=== PATIENT | male | born 1960 | race Hispanic/Latino ===

== ENCOUNTER 2016-10-20 16:48 | Emergency (ER) | payer MEDICARE ==
[2016-10-21 01:01] LABS: Urine Drugs of Abuse Note Disclamer
[2016-10-21 01:04] LABS: Basophils % (Auto) 0.9 % (0.0-1.8); Eosinophils % (Auto) 2.4 % (0.0-4.3); Hematocrit 45.2 % (35.5-45.6); Hemoglobin 14.8 gm/dl (11.8-15.2); Mean Corpuscular HGB Conc 33 % (32-34); Mean Corpuscular Hemoglobin 29 pg (28-32); Mean Corpuscular Volume 88 fl (84-94); Platelet Count 165 K/mm3 (140-440); Red Blood Count 5.11 M/mm3 (3.65-5.03); Red Cell Distribution Width 14.3 % (13.2-15.2); White Blood Count 7.3 K/mm3 (4.5-11.0)
[2016-10-21 01:14] LABS: Bilirubin,Urine NEG (Negative); Blood,Urine NEG (Negative); Ketones,Urine NEG (Negative); Leukocyte Esterase,Urine NEG (Negative); Nitrite,Urine NEG (Negative); Protein,Urine <15 mg/dL mg/dL (Negative); Urobilinogen,Urine < 2.0 mg/dL (<2.0)
[2016-10-21 01:22] LABS: Anion Gap 13 mmol/L; Blood Urea Nitrogen 7 mg/dL (9-20); Carbon Dioxide 34 mmol/L (22-30); Chloride 93.5 mmol/L (98-107); Glucose 98 mg/dL (75-100); Potassium 4.3 mmol/L (3.6-5.0); Sodium 136 mmol/L (137-145)
--- NOTE | 2016-10-21 05:03 | Emergency Department Report ---
ED Psych HPI - General Chief Complaint: Medical Clearance Stated Complaint: MH/EVAL Time Seen by Provider: 10/21/16 02:15 Source: patient Mode of arrival: Ambulatory - History of Present Illness Initial Comments: This is a pleasant gentleman who has been living in jail home where he gets some assistance. He states he is not very happy there. He is asking for help in arranging a different situation. He denies any drugs of abuse or alcohol. He does report smoking. He does report history of asthma. He states that he does not use albuterol because it does not help him. He makes very many comments about different medications while here. He states he is not currently on any medications but has been on some in the past. He reports a history of bipolar as well as anxiety and depression. He states he was in [place]. He reports some PTSD as a result of that as well. Patient denies any suicidal or homicidal ideations. 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 MD Complaint: feels depressed -: Gradual, week(s) Associated Psychiatric Symptoms: depression History of same: Yes Quality: changing over time Improves With: therapy Worsens With: none Associated Symptoms: denies other symptoms Treatments Prior to Arrival: none - Related Data Home Medications Medication Instructions Recorded Confirmed Last Taken No Known Home Medications [No 07/11/16 10/20/16 Unknown Reported Home Medications] Allergies Allergy/AdvReac Type Severity Reaction Status Date / Time chlorpromazine HCl Allergy Unknown Verified 10/20/16 17:33 [From Thorazine] fluphenazine enanthate Allergy Unknown Verified 10/20/16 17:33 [From Prolixin] fluphenazine HCl Allergy Unknown Verified 10/20/16 17:33 [From Prolixin] haloperidol [From Haldol] Allergy Unknown Verified 10/20/16 17:33 haloperidol lactate Allergy Unknown Verified 10/20/16 17:33 [From Haldol] ED Review of Systems ROS: Stated complaint: MH/EVAL Other details as noted in HPI Constitutional: denies: chills, fever Eyes: denies: eye pain, eye discharge, vision change ENT: denies: ear pain, throat pain Respiratory: shortness of breath. denies: cough, wheezing Cardiovascular: denies: chest pain, palpitations Endocrine: no symptoms reported Gastrointestinal: denies: abdominal pain, nausea, diarrhea Genitourinary: denies: urgency, dysuria Musculoskeletal: denies: back pain, joint swelling, arthralgia Skin: denies: rash, lesions Neurological: denies: headache, weakness, paresthesias Psychiatric: anxiety, depression Hematological/Lymphatic: denies: easy bleeding, easy bruising ED Past Medical Hx - Past Medical History Hx Psychiatric Treatment: Yes (BIPOLAR/SCHIZO) Hx Asthma: Yes - Surgical History Additional Surgical History: "GROWTH FROM RECTUM REMOVED ..HEMORRHOIDECTOMY?" - Social History Smoking Status: Current Every Day Smoker Substance Use Type: None - Medications Home Medications: Home Medications Medication Instructions Recorded Confirmed Last Taken Type No Known Home Medications [No 07/11/16 10/20/16 Unknown History Reported Home Medications] ED Physical Exam - General Limitations: No Limitations General appearance: alert, in no apparent distress - Head Head exam: Present: atraumatic, normocephalic - Eye Eye exam: Present: normal appearance - ENT ENT exam: Present: mucous membranes moist - Neck Neck exam: Present: normal inspection - Respiratory Respiratory exam: Present: wheezes (moderate), decreased breath sounds ( diffusely). Absent: respiratory distress - Cardiovascular Cardiovascular Exam: Present: regular rate, normal rhythm. Absent: systolic murmur, diastolic murmur, rubs, gallop - GI/Abdominal GI/Abdominal exam: Present: soft, normal bowel sounds - Rectal Rectal exam: Present: deferred - Extremities Exam Extremities exam: Present: normal inspection - Back Exam Back exam: Present: normal inspection - Neurological Exam Neurological exam: Present: alert, oriented X3, normal gait - Psychiatric Psychiatric exam: Present: normal affect, normal mood. Absent: agitated, anxious, manic, homicidal ideation, suicidal ideation - Skin Skin exam: Present: warm, dry, intact, normal color. Absent: rash ED Course Vital Signs 10/20/16 10/20/16 10/21/16 17:20 23:08 00:27 Temperature 98.2 F 98.4 F Pulse Rate 95 H 88 Respiratory 19 20 18 Rate Blood Pressure 141/107 Blood Pressure 151/96 [Right] O2 Sat by Pulse 96 99 Oximetry - Reevaluation(s) Reevaluation #1: 10/21/16 05:01 Patient is really calm during the interview. He really is kind of like a osvaldo bear. He seems like a kind gentleman with somewhat decreased mental capacity. He expresses no thoughts of harm to self or others. I did have him interviewed by mental health staff here. They will arrange for her day program as well as access to social workers who can hopefully help him get into a better situation for his living status. He does need to reestablish care with mental health as well for his medications. He is agreeable to all of this. This is all voluntary. The medical standpoint he is medically clear for me. I prefer he use albuterol but for whatever reason he is unwilling to do this. His O2 saturation is adequate. I did encourage smoking cessation. ED Medical Decision Making - Lab Data Result diagrams: 10/21/16 00:38 10/21/16 00:38 Critical care attestation.: If time is entered above; I have spent that time in minutes in the direct care of this critically ill patient, excluding procedure time. ED Disposition Clinical Impression: Bipolar 1 disorder, depressed Asthma Qualifiers: Asthma severity: mild intermittent Asthma complication type: uncomplicated Qualified Code(s): J45.20 - Mild intermittent asthma, uncomplicated Disposition: DC/TX PSY HOSP/PSY UNIT Is pt being admited?: No Does the pt Need Aspirin: No Condition: Stable Instructions: Asthma (ED) Referrals: PRIMARY CARE, [Primary Care Provider] - 3-5 Days Time of Disposition: 05:03
[2016-10-21 09:46] VITALS: BP 140/91
--- NOTE | 2016-10-21 13:08 | Emergency Department Report ---
Blank Doc - Documentation Documentation: The patient came here I understand because he would like inpatient treatment at [facility] for drug abuse. He has a history of bipolar disorder. At this point he is not agitated he is not depressed. He is not hallucinating. He requested voluntary admission. According to the psychiatric counselor today this is related to homelessness. He told the counselor today that he no longer was interested in placement after [facility] declined his admission. He states he will follow up with outpatient services. He is not suicidal or homicidal hallucinating or unable to care for his own ADLs. The patient is in no distress. He is not hallucinating he is oriented 3. He is neurologically intact and fully ambulatory cardiopulmonary and GI exam was unremarkable. Assessment bipolar disorder History of substance abuse Plan The patient not meeting 1013 criteria is discharged to follow up with outpatient services.
== END 2016-10-21 13:24 ==
LOC: ED 16:48 → EEVIPCON 16:48 → ED 10-21 13:24
DX: F31.9 Bipolar disorder, unspecified (principal); F32.9 Major depressive disorder, single episode, unspecified; J45.20 Mild intermittent asthma, uncomplicated; F20.9 Schizophrenia, unspecified; F17.200 Nicotine dependence, unspecified, uncomplicated; Z90.89 Acquired absence of other organs; Z88.8 Allergy status to other drugs, medicaments and biological substances
CPT/HCPCS: 36415; 80048; 80307; 81001; 85025; 99284; G0480; 80320

== ENCOUNTER 2017-02-18 23:56 | Emergency (ER) | payer MEDICARE ==
[2017-02-19 00:27] VITALS: BP 119/83
[2017-02-19 01:12] LABS: Basophils % (Auto) 0.6 % (0.0-1.8); Eosinophils % (Auto) 1.7 % (0.0-4.3); Hematocrit 43.1 % (35.5-45.6); Hemoglobin 14.4 gm/dl (11.8-15.2); Mean Corpuscular HGB Conc 33 % (32-34); Mean Corpuscular Hemoglobin 29 pg (28-32); Mean Corpuscular Volume 87 fl (84-94); Platelet Count 177 K/mm3 (140-440); Red Blood Count 4.94 M/mm3 (3.65-5.03); Red Cell Distribution Width 14.5 % (13.2-15.2); White Blood Count 9.4 K/mm3 (4.5-11.0)
[2017-02-19 01:30] LABS: Anion Gap 15 mmol/L; BUN/Creatinine Ratio 18.57; Blood Urea Nitrogen 13 mg/dL (9-20); Calcium 9.5 mg/dL (8.4-10.2); Carbon Dioxide 32 mmol/L (22-30); Chloride 95.7 mmol/L (98-107); Glucose 81 mg/dL (75-100); Potassium 4.1 mmol/L (3.6-5.0); Sodium 139 mmol/L (137-145)
--- NOTE | 2017-02-22 00:51 | ED Elopement Review ---
ED Pt Elopement review - Results review Lab results: Laboratory Tests 02/19/17 02/19/17 02/19/17 00:47 00:47 00:47 WBC 9.4 RBC 4.94 Hgb 14.4 Hct 43.1 MCV 87 MCH 29 MCHC 33 RDW 14.5 Plt Count 177 Lymph % (Auto) 24.9 [place] % (Auto) 10.4 H Eos % (Auto) 1.7 Baso % (Auto) 0.6 Lymph # 2.3 [place] # 1.0 H Eos # 0.2 Baso # 0.1 Seg Neutrophils % 62.4 Seg Neutrophils # 5.9 Sodium 139 Potassium 4.1 Chloride 95.7 L Carbon Dioxide 32 H Anion Gap 15 BUN 13 Creatinine 0.7 L Estimated GFR > 60 BUN/Creatinine Ratio 18.57 Glucose 81 Calcium 9.5 Plasma/Serum Alcohol < 0.01 - Call Back decision Pt Call Back Decision: Pt to F/U with PMD
== END 2017-02-19 04:30 | disposition left against medical advice (07) ==
LOC: ED 23:56
DX: E86.0 Dehydration (principal); Z53.21 Procedure and treatment not carried out due to patient leaving prior to being seen by health care provider
CPT/HCPCS: 36415; 80048; 85025; G0480; 80320

== ENCOUNTER 2017-02-19 06:54 | Emergency (ER) | payer MEDICARE ==
--- NOTE | 2017-02-19 11:30 | Emergency Department Report ---
ED Psych HPI - General Chief Complaint: Psych Stated Complaint: MH EVAL Time Seen by Provider: 02/19/17 11:15 Source: patient Mode of arrival: Ambulatory - History of Present Illness MD Complaint: feels depressed, altered mental status -: Gradual Associated Psychiatric Symptoms: depression, suicidal ideation History of same: Yes Quality: constant Worsens With: none Context: not taking psychiatric Associated Symptoms: denies other symptoms. denies: confusion, headache, shortness of breath, nausea Treatments Prior to Arrival: none If Self Harm: admits thoughts of - Related Data Home Medications Medication Instructions Recorded Confirmed Last Taken No Known Home Medications [No 07/11/16 10/22/16 Unknown Reported Home Medications] Allergies Allergy/AdvReac Type Severity Reaction Status Date / Time chlorpromazine HCl Allergy Unknown Verified 10/20/16 17:33 [From Thorazine] fluphenazine enanthate Allergy Unknown Verified 10/20/16 17:33 [From Prolixin] fluphenazine HCl Allergy Unknown Verified 10/20/16 17:33 [From Prolixin] haloperidol [From Haldol] Allergy Unknown Verified 10/20/16 17:33 haloperidol lactate Allergy Unknown Verified 10/20/16 17:33 [From Haldol] ED Review of Systems ROS: Stated complaint: MH EVAL Other details as noted in HPI Comment: All other systems reviewed and negative ED Past Medical Hx - Past Medical History Previous Medical History?: Yes Hx Psychiatric Treatment: Yes (BIPOLAR/SCHIZO) Hx Asthma: Yes - Surgical History Past Surgical History?: Yes Additional Surgical History: "GROWTH FROM RECTUM REMOVED ..HEMORRHOIDECTOMY?" - Social History Smoking Status: Current Every Day Smoker - Medications Home Medications: Home Medications Medication Instructions Recorded Confirmed Last Taken Type No Known Home Medications [No 07/11/16 10/22/16 Unknown History Reported Home Medications] ED Physical Exam - General Limitations: No Limitations General appearance: alert, in no apparent distress - Head Head exam: Present: atraumatic, normocephalic - Eye Eye exam: Present: normal appearance - ENT ENT exam: Present: mucous membranes moist - Neck Neck exam: Present: normal inspection - Respiratory Respiratory exam: Present: normal lung sounds bilaterally. Absent: respiratory distress - Cardiovascular Cardiovascular Exam: Present: regular rate, normal rhythm. Absent: systolic murmur, diastolic murmur, rubs, gallop - GI/Abdominal GI/Abdominal exam: Present: soft, normal bowel sounds - Rectal Rectal exam: Present: deferred - Extremities Exam Extremities exam: Present: normal inspection - Back Exam Back exam: Present: normal inspection - Neurological Exam Neurological exam: Present: alert, oriented X3 - Psychiatric Psychiatric exam: Present: depressed, flat affect, suicidal ideation - Skin Skin exam: Present: warm, dry, intact, normal color. Absent: rash ED Course Vital Signs 02/19/17 02/19/17 07:56 11:51 Temperature 97.5 F L 98.2 F Pulse Rate 83 84 Respiratory 18 18 Rate Blood Pressure 132/102 Blood Pressure 144/84 [Right] O2 Sat by Pulse 96 99 Oximetry ED Medical Decision Making - Lab Data Result diagrams: 02/19/17 11:24 02/19/17 11:24 - Medical Decision Making will transfer to psych unit, medically cleared at this time , waitin for transfer , patient is calm and stable Critical care attestation.: If time is entered above; I have spent that time in minutes in the direct care of this critically ill patient, excluding procedure time. ED Disposition Clinical Impression: Bipolar 1 disorder Disposition: DC/TX-65 PSY HOSP/PSY UNIT Is pt being admited?: No Does the pt Need Aspirin: No Condition: Good Referrals: PRIMARY CARE [Primary Care Provider] - 3-5 Days Time of Disposition: 14:35
[2017-02-19 11:54] LABS: Alanine Aminotransferase 13 units/L (7-56); Albumin 3.9 g/dL (3.9-5); Albumin/Globulin Ratio 1.3 %; Alkaline Phosphatase 81 units/L (35-129); Anion Gap 15 mmol/L; Blood Urea Nitrogen 14 mg/dL (9-20); Calcium 8.9 mg/dL (8.4-10.2); Carbon Dioxide 31 mmol/L (22-30); Chloride 97.8 mmol/L (98-107); Glucose 90 mg/dL (75-100); Potassium 4.6 mmol/L (3.6-5.0); Sodium 139 mmol/L (137-145); Total Protein 6.8 g/dL (6.3-8.2)
[2017-02-19 12:06] LABS: Basophils % (Auto) 0.8 % (0.0-1.8); Eosinophils % (Auto) 1.6 % (0.0-4.3); Hematocrit 41.9 % (35.5-45.6); Hemoglobin 13.8 gm/dl (11.8-15.2); Mean Corpuscular HGB Conc 33 % (32-34); Mean Corpuscular Hemoglobin 29 pg (28-32); Mean Corpuscular Volume 89 fl (84-94); Platelet Count 164 K/mm3 (140-440); Red Blood Count 4.74 M/mm3 (3.65-5.03); Red Cell Distribution Width 14.5 % (13.2-15.2); White Blood Count 6.5 K/mm3 (4.5-11.0)
--- NOTE | 2017-02-19 18:43 | Consultation ---
History of Present Illness - Reason for Consult Consult date: 02/19/17 Reason for consult: psychiatric evaluation - Chief Complaint Chief complaint: "mental anxiety" Pt is a 56-yr old male seen for psychiatric evaluation. He is uncooperative with interview. Per [facility] triage report: pt presented to the ED w/ c/o feeling depressed and manic. Pt observed talking to self while in triage, per report. Pt began rambling when asked if he has suicidal and/or homicidal ideations. Per the record, he endorses suicidal thoughts frequently. Pt denies suicidal gestures or plans. Pt admits to 1 prior attempt, "when I was 18...by overdosing...I swallowed too many Thorazine." Per the record, pt denies homicidal ideation. Pt denies changes in sleep or appetite. Pt is disorganized and often rambled/mumbled during the assessment. Pt denies hallucinations or other disturbances in thought process. He denies all other substance use/abuse: UDS (-). Pt denies mental health hx, however, ED reports notes hx of Bipolar Disorder and Schizophrenia. Patient is known to this author for having a similar presentation previously, paranoid, psychotic, and uncooperative. Medications and Allergies Allergies Allergy/AdvReac Type Severity Reaction Status Date / Time chlorpromazine HCl Allergy Unknown Verified 10/20/16 17:33 [From Thorazine] fluphenazine enanthate Allergy Unknown Verified 10/20/16 17:33 [From Prolixin] fluphenazine HCl Allergy Unknown Verified 10/20/16 17:33 [From Prolixin] haloperidol [From Haldol] Allergy Unknown Verified 10/20/16 17:33 haloperidol lactate Allergy Unknown Verified 10/20/16 17:33 [From Haldol] Home Medications Medication Instructions Recorded Confirmed Last Taken Type No Known Home Medications [No 07/11/16 10/22/16 Unknown History Reported Home Medications] Past psychiatric history - Past Medical History Past Medical History: other (unable to obtain) Past Surgical History: Other (unable to obtain) - past Psychiatric treatment and history Psych: Schizophrenia - Social History Social history: other (unknown) Mental Status Exam - Vital signs Last Vital Signs Temp 98.2 F 02/19/17 11:51 Pulse 84 02/19/17 11:51 Resp 18 02/19/17 11:51 BP 144/84 02/19/17 11:51 Pulse Ox 99 02/19/17 11:51 - Exam Orientation: person Affect: agitated Mood: congruent with affect Thought content: paranoia Thought Process: Disorganized Perceptions: other (responding to internal stimuli) Speech: minimal response Concentration: unable to pay attention Motor activity: restless Level of consciousness: alert Interaction: uncooperative Results Result Diagrams: 02/19/17 11:24 02/19/17 11:24 Abnormal lab results 02/19/17 02/19/17 Range/Units 11:24 11:24 [place] % (Auto) 11.3 H (0.0-7.3) % Chloride 97.8 L (98-107) mmol/L Carbon Dioxide 31 H (22-30) mmol/L Creatinine 0.7 L (0.8-1.5) mg/dL All other labs normal. Assessment and Plan Assessment and plan: Impression: Schizophrenia Acute psychosis Recommendation: 1013 and transfer to inpatient psychiatric hospital Start antipsychotic, risperdal 1mg hs, for psychosis.
[2017-02-19 18:54] LABS: Bilirubin,Urine NEG (Negative); Blood,Urine SM (Negative); Ketones,Urine NEG (Negative); Leukocyte Esterase,Urine NEG (Negative); Nitrite,Urine NEG (Negative); Protein,Urine <15 mg/dL mg/dL (Negative); RBC,Urine < 1.0 /HPF (0.0-6.0); Urobilinogen,Urine < 2.0 mg/dL (<2.0); WBC,Urine < 1.0 /HPF (0.0-6.0)
[2017-02-20] MEDS: RisperDAL PO SCH ×3 (08:44→22:15)
--- NOTE | 2017-02-20 11:27 | Progress Note ---
Subjective - Reason for Consult Consult date: 02/20/17 Reason for consult: psychosis - Chief Complaint Chief complaint: "mental anxiety" Pt is a 56-yr old male seen for psychiatric evaluation. He is uncooperative with interview. Per [facility] triage report: pt presented to the ED w/ c/o feeling depressed and manic. Pt observed talking to self while in triage, per report. Pt began rambling when asked if he has suicidal and/or homicidal ideations. Per the record, he endorses suicidal thoughts frequently. Pt denies suicidal gestures or plans. Pt admits to 1 prior attempt, "when I was 18...by overdosing...I swallowed too many Thorazine." Per the record, pt denies homicidal ideation. Pt denies changes in sleep or appetite. Pt is disorganized and often rambled/mumbled during the assessment. Pt denies hallucinations or other disturbances in thought process. He denies all other substance use/abuse: UDS (-). Pt denies mental health hx, however, ED reports notes hx of Bipolar Disorder and Schizophrenia. Patient is known to this author for having a similar presentation previously, paranoid, psychotic, and uncooperative. Mental Status Exam - Vital signs Last Vital Signs Temp 98.5 F 02/20/17 07:40 Pulse 78 02/20/17 07:40 Resp 16 02/20/17 07:40 BP 133/99 02/20/17 07:40 Pulse Ox 99 02/20/17 07:40 Assessment and Plan Patient still appears fairly disorganized, and he is perseverating on past experiences. It also appears patient appears to be having some persecutory delusions. General Appearance: casually dressed, no acute distress Sensorium/Consciousness: alert and responding to external stimuli; clear Orientation: person, place, time and situation Eye Contact: limited Attitude / Behavior: guarded Psychomotor & Musculoskeletal Activity: WNL Mood: ok Affect: constricted, limited range Speech / Language: Loud Thought Processes: disorganized Thought Content: no SI, no HI Perception: Appear to be responding to internal stimuli Insight: limited Judgement: limitied Capacity for ADLs: independent Plan: Increase risperidone to 2 mg at bedtime Continue to monitor response to treatment with the intent to reduce the persecutory delusions
[2017-02-20] MEDS ORDERED: RisperDAL PO SCH (11:28)
[2017-02-20] MEDS ORDERED: GEODON IM ONE (17:06)
--- NOTE | 2017-02-20 17:38 | Emergency Department Report ---
Blank Doc - Documentation Documentation: Patient has become more agitated and requiring additional anti-psychotic medication. Geodon 20 mg IM ordered. I spoke to mental health regarding Dr. Buitrago's order for Risperdal 1 mg twice a day him today and his note indicating that patient should receive Risperdal 2 mg daily at bedtime. Dr. Buitrago was contacted and he prefers Risperdal 2 mg daily at bedtime therefore order was changed by me.
[2017-02-21 03:39] LABS: Urine Drugs of Abuse Note Disclamer
[2017-02-21 19:03] VITALS: BP 123/98
[2017-02-21] MEDS: RisperDAL PO SCH (22:23)
== END 2017-02-22 01:06 ==
LOC: ED 06:54 → EEVIPCON 06:54 → ED 02-22 01:06
DX: F31.9 Bipolar disorder, unspecified (principal); F20.9 Schizophrenia, unspecified; J45.909 Unspecified asthma, uncomplicated; F17.200 Nicotine dependence, unspecified, uncomplicated; Z88.8 Allergy status to other drugs, medicaments and biological substances
CPT/HCPCS: 36415; 80053; 80307; 81001; 85025; 96372; 99285; G0480; J3486; 80320

== ENCOUNTER 2017-03-19 20:01 | Emergency (ER) | payer MEDICARE ==
[2017-03-19 20:37] VITALS: BP 147/95
[2017-03-19 20:52] LABS: Urine Drugs of Abuse Note Disclamer
[2017-03-19 21:03] LABS: Basophils % (Auto) 0.6 % (0.0-1.8); Eosinophils % (Auto) 1.9 % (0.0-4.3); Hematocrit 42.6 % (35.5-45.6); Hemoglobin 14.1 gm/dl (11.8-15.2); Mean Corpuscular HGB Conc 33 % (32-34); Mean Corpuscular Hemoglobin 30 pg (28-32); Mean Corpuscular Volume 89 fl (84-94); Platelet Count 184 K/mm3 (140-440); Red Blood Count 4.79 M/mm3 (3.65-5.03); Red Cell Distribution Width 14.2 % (13.2-15.2); White Blood Count 9.4 K/mm3 (4.5-11.0)
[2017-03-19 21:12] LABS: Bacteria,Urine 1+ /HPF (Negative); Bilirubin,Urine NEG (Negative); Blood,Urine NEG (Negative); Ketones,Urine TR mg/dL (Negative); Leukocyte Esterase,Urine NEG (Negative); Mucus,Urine FEW /HPF; Nitrite,Urine NEG (Negative); Protein,Urine <15 mg/dL mg/dL (Negative); Urobilinogen,Urine < 2.0 mg/dL (<2.0)
[2017-03-19 21:21] LABS: Anion Gap 12 mmol/L; BUN/Creatinine Ratio 12.22; Blood Urea Nitrogen 11 mg/dL (9-20); Calcium 9.4 mg/dL (8.4-10.2); Carbon Dioxide 36 mmol/L (22-30); Chloride 91.5 mmol/L (98-107); Glucose 121 mg/dL (75-100); Potassium 3.7 mmol/L (3.6-5.0); Sodium 136 mmol/L (137-145)
--- NOTE | 2017-03-20 17:22 | ED Elopement Review ---
ED Pt Elopement review - Results review Lab results: Laboratory Tests 03/19/17 03/19/17 03/19/17 20:47 20:47 20:47 WBC 9.4 RBC 4.79 Hgb 14.1 Hct 42.6 MCV 89 MCH 30 MCHC 33 RDW 14.2 Plt Count 184 Lymph % (Auto) 17.4 [place] % (Auto) 10.4 H Eos % (Auto) 1.9 Baso % (Auto) 0.6 Lymph # 1.6 [place] # 1.0 H Eos # 0.2 Baso # 0.1 Seg Neutrophils % 69.7 Seg Neutrophils # 6.6 Sodium 136 L Potassium 3.7 Chloride 91.5 L Carbon Dioxide 36 H Anion Gap 12 BUN 11 Creatinine 0.9 Estimated GFR > 60 BUN/Creatinine Ratio 12.22 Glucose 121 H Calcium 9.4 Urine Color Urine Turbidity Urine pH Ur Specific [place] Urine Protein Urine Glucose (UA) Urine Ketones Urine Blood Urine Nitrite Urine Bilirubin Urine Urobilinogen Ur Leukocyte Esterase Urine WBC (Auto) Urine RBC (Auto) U Epithel Cells (Auto) Urine Bacteria (Auto) Urine Mucus Urine Opiates Screen Urine Methadone Screen Ur Barbiturates Screen Ur Phencyclidine Scrn Ur Amphetamines Screen U Benzodiazepines Scrn Urine Cocaine Screen U Marijuana (THC) Screen Drugs of Abuse Note Plasma/Serum Alcohol < 0.01 03/19/17 03/19/17 20:48 20:48 WBC RBC Hgb Hct MCV MCH MCHC RDW Plt Count Lymph % (Auto) [place] % (Auto) Eos % (Auto) Baso % (Auto) Lymph # [place] # Eos # Baso # Seg Neutrophils % Seg Neutrophils # Sodium Potassium Chloride Carbon Dioxide Anion Gap BUN Creatinine Estimated GFR BUN/Creatinine Ratio Glucose Calcium Urine Color Yellow Urine Turbidity Clear Urine pH 6.0 Ur Specific [place] 1.023 Urine Protein <15 mg/dl Urine Glucose (UA) Neg Urine Ketones Tr Urine Blood Neg Urine Nitrite Neg Urine Bilirubin Neg Urine Urobilinogen < 2.0 Ur Leukocyte Esterase Neg Urine WBC (Auto) 5.0 Urine RBC (Auto) 7.0 U Epithel Cells (Auto) 1.0 Urine Bacteria (Auto) 1+ Urine Mucus Few Urine Opiates Screen Presumptive negative Urine Methadone Screen Presumptive negative Ur Barbiturates Screen Presumptive positive Ur Phencyclidine Scrn Presumptive negative Ur Amphetamines Screen Presumptive negative U Benzodiazepines Scrn Presumptive negative Urine Cocaine Screen Presumptive negative U Marijuana (THC) Screen Presumptive negative Drugs of Abuse Note Disclamer Plasma/Serum Alcohol - Call Back decision Pt Call Back Decision: No action required
== END 2017-03-19 23:00 | disposition left against medical advice (07) ==
LOC: ED 20:01
DX: Z00.8 Encounter for other general examination (principal); F31.9 Bipolar disorder, unspecified; F20.9 Schizophrenia, unspecified; F17.200 Nicotine dependence, unspecified, uncomplicated; Z88.8 Allergy status to other drugs, medicaments and biological substances; Z53.21 Procedure and treatment not carried out due to patient leaving prior to being seen by health care provider
CPT/HCPCS: 36415; 80048; 80307; 81001; 85025; G0480; 80320

== ENCOUNTER 2017-03-20 15:09 | Emergency (ER) | payer MEDICARE | END 2017-03-20 15:18 | disposition left against medical advice (07) | LOC: ED 15:09 | DX: Z00.8 Encounter for other general examination (principal); Z88.8 Allergy status to other drugs, medicaments and biological substances; Z53.21 Procedure and treatment not carried out due to patient leaving prior to being seen by health care provider ==

== ENCOUNTER 2017-03-21 16:12 | Emergency (ER) | payer MEDICARE ==
[2017-03-21 16:28] VITALS: BP 112/86
[2017-03-21 16:49] LABS: Urine Drugs of Abuse Note Disclamer
[2017-03-21 17:00] LABS: Basophils % (Auto) 0.6 % (0.0-1.8); Eosinophils % (Auto) 1.1 % (0.0-4.3); Hemoglobin 13.7 gm/dl (11.8-15.2); Mean Corpuscular HGB Conc 34 % (32-34); Mean Corpuscular Hemoglobin 30 pg (28-32); Mean Corpuscular Volume 90 fl (84-94); Platelet Count 175 K/mm3 (140-440); Red Blood Count 4.59 M/mm3 (3.65-5.03); White Blood Count 8.9 K/mm3 (4.5-11.0)
[2017-03-21 17:04] LABS: Bilirubin,Urine NEG (Negative); Blood,Urine NEG (Negative); Ketones,Urine NEG (Negative); Leukocyte Esterase,Urine NEG (Negative); Mucus,Urine FEW /HPF; Nitrite,Urine NEG (Negative); Protein,Urine <15 mg/dL mg/dL (Negative); Urobilinogen,Urine < 2.0 mg/dL (<2.0)
== END 2017-03-21 17:15 | disposition left against medical advice (07) ==
LOC: ED 16:12
DX: R53.1 Weakness (principal); Z53.21 Procedure and treatment not carried out due to patient leaving prior to being seen by health care provider
CPT/HCPCS: 36415; 80307; 81001; 85025; G0480; 80320

== ENCOUNTER 2017-03-22 15:12 | Emergency (ER) | payer MEDICARE | END 2017-03-22 20:49 | disposition left against medical advice (07) | LOC: ED 15:12 | DX: R41.82 Altered mental status, unspecified (principal); Z53.21 Procedure and treatment not carried out due to patient leaving prior to being seen by health care provider ==

== ENCOUNTER 2017-03-28 04:22 | Emergency (ER) | payer MEDICARE ==
[2017-03-28 06:45] VITALS: BP 138/72
--- NOTE | 2017-03-28 07:34 | XRay Report ---
FINAL REPORT EXAM: XR FOOT 2V LT HISTORY: left foot foreign body COMPARISONS: None. FINDINGS: AP and lateral nonweightbearing views of the left foot No radiodense foreign body, bone lesion, periosteal reaction, or fracture. No deformity or gross malalignment. IMPRESSION: No radiodense foreign body or fracture identified. Consider targeted ultrasound for further evaluation of foreign body as warranted.
[2017-03-28] MEDS ORDERED: BOOSTRIX IM ONE (07:42)
--- NOTE | 2017-03-28 07:45 | Emergency Department Report ---
ED Lower Extremity HPI - General Chief Complaint: Extremity Injury, Lower Stated Complaint: GENERAL ILLNESS Time Seen by Provider: 03/28/17 07:06 Source: patient Mode of arrival: Stretcher Limitations: No Limitations - History of Present Illness Initial Comments: This is a 56-year-old male well-nourished with nontoxic or ill in appearance but presents to the ED complaining of something being stuck in his left foot times one month. Patient also states he is here just because he is very tired and wants to get rest and has no food. Patient denies any trauma and stated he is unknown what is thought but he believes something is there. Patient denies any numbness, tingling, swelling, redness, fever, chills, chest pain, shortness of breath, headache, blurry vision, nausea or vomiting. Patient denies any pain. Denies significant past medical history. Patient stated he is homeless and needs a place to sleep. MD Complaint: foot injury -: Gradual, month(s) (1) Injury: Foot: Right Type of Injury: unknown Place: other (unknown) Severity: mild Severity scale (0 -10): 0 Improves With: nothing Worsens With: nothing Associated Symptoms: denies: snap/pop sensation, swelling, numbness, tingling, unable to bear weight, able to partially bear weight, ambulatory - Related Data Home Medications Medication Instructions Recorded Confirmed Last Taken No Known Home Medications [No 07/11/16 02/20/17 Unknown Reported Home Medications] Allergies Allergy/AdvReac Type Severity Reaction Status Date / Time acetaminophen [From Tylenol] Allergy Hives Verified 03/21/17 16:29 chlorpromazine HCl Allergy Unknown Verified 03/21/17 16:29 [From Thorazine] diphenhydramine HCl Allergy Hives Verified 03/21/17 16:29 [From Benadryl] fluphenazine enanthate Allergy Unknown Verified 03/21/17 16:29 [From Prolixin] fluphenazine HCl Allergy Unknown Verified 03/21/17 16:29 [From Prolixin] haloperidol [From Haldol] Allergy Unknown Verified 03/21/17 16:29 haloperidol lactate Allergy Unknown Verified 03/21/17 16:29 [From Haldol] ED Review of Systems ROS: Stated complaint: GENERAL ILLNESS Other details as noted in HPI Constitutional: denies: chills, fever Eyes: denies: eye pain, eye discharge, vision change ENT: denies: ear pain, throat pain Respiratory: denies: cough, shortness of breath, wheezing Cardiovascular: denies: chest pain, palpitations Endocrine: no symptoms reported Gastrointestinal: denies: abdominal pain, nausea, diarrhea Genitourinary: denies: urgency, dysuria Musculoskeletal: denies: back pain, joint swelling, arthralgia Skin: denies: rash, lesions Neurological: denies: headache, weakness, paresthesias Psychiatric: denies: anxiety, depression Hematological/Lymphatic: denies: easy bleeding, easy bruising ED Past Medical Hx - Past Medical History Hx Psychiatric Treatment: Yes (BIPOLAR/SCHIZO) Hx Asthma: Yes - Surgical History Additional Surgical History: "GROWTH FROM RECTUM REMOVED ..HEMORRHOIDECTOMY?" - Social History Smoking Status: Current Every Day Smoker Substance Use Type: Alcohol - Medications Home Medications: Home Medications Medication Instructions Recorded Confirmed Last Taken Type No Known Home Medications [No 07/11/16 02/20/17 Unknown History Reported Home Medications] ED Physical Exam - General Limitations: No Limitations General appearance: alert, in no apparent distress - Head Head exam: Present: atraumatic, normocephalic, normal inspection - Eye Eye exam: Present: normal appearance, PERRL, EOMI. Absent: scleral icterus, conjunctival injection, nystagmus, periorbital swelling, periorbital tenderness Pupils: Present: normal accommodation - ENT ENT exam: Present: normal exam, normal orophraynx, mucous membranes moist, TM's normal bilaterally, normal external ear exam - Neck Neck exam: Present: normal inspection, full ROM. Absent: tenderness, meningismus, lymphadenopathy, thyromegaly - Respiratory Respiratory exam: Present: normal lung sounds bilaterally. Absent: respiratory distress, wheezes, rales, rhonchi, stridor, chest wall tenderness, accessory muscle use, decreased breath sounds, prolonged expiratory - Cardiovascular Cardiovascular Exam: Present: regular rate, normal rhythm, normal heart sounds. Absent: bradycardia, tachycardia, irregular rhythm, systolic murmur, diastolic murmur, rubs, gallop - GI/Abdominal GI/Abdominal exam: Present: soft, normal bowel sounds. Absent: distended, tenderness, guarding, rebound, rigid, diminished bowel sounds - Rectal Rectal exam: Present: deferred - Extremities Exam Extremities exam: Present: normal inspection, full ROM, normal capillary refill. Absent: tenderness, pedal edema, joint swelling, calf tenderness - Expanded Lower Extremity Exam Left Hip exam: Present: normal inspection, full ROM. Absent: tenderness, swelling, abrasion, laceration, ecchymosis, deformity, crepidus, dislocation, erythema, external rotation, internal rotation, shortening, pelvic stability Upper Leg exam: Present: normal inspection, full ROM. Absent: tenderness, swelling, abrasion, laceration, ecchymosis, deformity, crepidus, dislocation, erythema Knee exam: Present: normal inspection, full ROM, full knee extension. Absent: tenderness, swelling, abrasion, laceration, ecchymosis, deformity, crepidus, dislocation, erythema, effusion, pain w/ pronation/supination, posterior draw sign, pain/laxity with valgus, pain/laxity with varus Lower Leg exam: Present: normal inspection, full ROM. Absent: tenderness, swelling, abrasion, laceration, ecchymosis, deformity, crepidus, dislocation, erythema, palpable cord, Erica's sign Ankle exam: Present: normal inspection, full ROM. Absent: tenderness, swelling , abrasion, laceration, ecchymosis, deformity, crepidus, dislocation, erythema, anterior draw sign Foot/Toe exam: Present: normal inspection, full ROM. Absent: tenderness, swelling, abrasion, laceration, ecchymosis, deformity, crepidus, dislocation, erythema, amputation, puncture wound, foreign body, calcaneal tenderness, tenderness at base of 5th metatarsal, nail avulsion, subungual hematoma Neuro vascular tendon exam: Present: no vascular compromise. Absent: pulse deficit, abnormal cap refill, motor deficit, sensory deficit, tendon deficit, extremity cold to touch, pallor, abnormal 2-point discrimination, decreased fine /light touch, foot drop, peroneal nerve deficit, significant pain with passive ROM of distal joint Gait: Positive: observed and normal - Back Exam Back exam: Present: normal inspection, full ROM. Absent: tenderness, CVA tenderness (R), CVA tenderness (L), muscle spasm, paraspinal tenderness, vertebral tenderness, rash noted - Neurological Exam Neurological exam: Present: alert, oriented X3, CN II-XII intact, normal gait, reflexes normal - Psychiatric Psychiatric exam: Present: normal affect, normal mood. Absent: depressed, agitated - Skin Skin exam: Present: warm, dry, intact, normal color. Absent: rash ED Course Vital Signs 03/28/17 06:37 Temperature 97.9 F Pulse Rate 82 Respiratory 16 Rate Blood Pressure 138/72 Blood Pressure 138/73 [Left] O2 Sat by Pulse 100 Oximetry - Reevaluation(s) Reevaluation #1: 03/28/17 07:46 Patient is able to speak in full sentences with no signs of distress noted. ED Lower Extremity MDM - Medical Decision Making ED course: 56-year-old male that presents with sensation of right foreign body times one month 1- x-ray has been obtained and dictated by Dr. Stallworth. Impression; no radiodense foreign body or fracture identified. AP and lateral nonweightbearing views of the left foot states bone lesion, periosteal reaction , or fact has not been identified. No deformity or gross malalignment. Due to no obvious signs of foreign body or puncture wound no further testing has been obtained. 2- patient received a tetanus booster due to patient stating he does not know his last tetanus shot. 3- patient was instructed to follow up with a primary care doctor and/or Dr. Costa/orthopedic doctor in 3-5 days or if symptoms worsen such as numbness, tingling, fever, swelling, pus, drainage, chest pain or shortness of breath return to emergency room as soon as possible. 4- at time time of discharge, the patient does not seem toxic or ill in appearance. No acute signs of distress noted. Patient agrees to discharge treatment plan of care. No further questions noted by the patient. 5- patient also received food in the ED due to patient requested food and rest. Critical care attestation.: If time is entered above; I have spent that time in minutes in the direct care of this critically ill patient, excluding procedure time. ED Disposition Clinical Impression: Sensation of foreign body in foot Disposition: DC-01 TO HOME OR SELFCARE Is pt being admited?: No Does the pt Need Aspirin: No Condition: Stable Instructions: RICE Therapy (ED) Additional Instructions: follow up with a primary care doctor and/or Dr. Costa/orthopedic doctor in 3-5 days or if symptoms worsen such as numbness, tingling, fever, swelling, pus, drainage, chest pain or shortness of breath return to emergency room as soon as possible. Referrals: PRIMARY CARE, [Primary Care Provider] - 3-5 Days FUNMILAYO COSTA MD [Staff Physician] - 3-5 Days [facility] [Outside] - 3-5 Days [facility] [Outside] - 3-5 Days
== END 2017-03-28 09:20 | disposition home or self-care (01) ==
LOC: ED 04:22
DX: R09.89 Other specified symptoms and signs involving the circulatory and respiratory systems (principal); J45.909 Unspecified asthma, uncomplicated; F31.9 Bipolar disorder, unspecified; F20.9 Schizophrenia, unspecified; F17.210 Nicotine dependence, cigarettes, uncomplicated; Z88.6 Allergy status to analgesic agent; Z88.8 Allergy status to other drugs, medicaments and biological substances
CPT/HCPCS: 90471; 90715; 99283

== ENCOUNTER 2017-03-28 10:00 | Emergency (ER) | payer MEDICARE ==
[2017-03-28 10:13] VITALS: BP 145/106
== END 2017-03-28 10:30 | disposition left against medical advice (07) ==
LOC: ED 10:00
DX: Z53.21 Procedure and treatment not carried out due to patient leaving prior to being seen by health care provider (principal)

== ENCOUNTER 2017-04-11 17:51 | Emergency (ER) | payer MEDICARE ==
[2017-04-11 18:59] LABS: Urine Drugs of Abuse Note Disclamer
[2017-04-11 19:12] LABS: Bilirubin,Urine NEG (Negative); Blood,Urine SM (Negative); Ketones,Urine NEG (Negative); Leukocyte Esterase,Urine NEG (Negative); Nitrite,Urine NEG (Negative); Protein,Urine <15 mg/dL mg/dL (Negative); Urobilinogen,Urine < 2.0 mg/dL (<2.0); WBC,Urine < 1.0 /HPF (0.0-6.0)
[2017-04-12 00:07] LABS: Basophils % (Auto) 0.7 % (0.0-1.8); Eosinophils % (Auto) 2.4 % (0.0-4.3); Hematocrit 42.8 % (35.5-45.6); Hemoglobin 14.4 gm/dl (11.8-15.2); Mean Corpuscular HGB Conc 34 % (32-34); Mean Corpuscular Hemoglobin 30 pg (28-32); Mean Corpuscular Volume 89 fl (84-94); Platelet Count 179 K/mm3 (140-440); Red Blood Count 4.81 M/mm3 (3.65-5.03); Red Cell Distribution Width 13.5 % (13.2-15.2); White Blood Count 8.4 K/mm3 (4.5-11.0)
[2017-04-12 00:23] LABS: BUN/Creatinine Ratio 22.85; Blood Urea Nitrogen 16 mg/dL (9-20); Calcium 9.2 mg/dL (8.4-10.2); Carbon Dioxide 29 mmol/L (22-30); Chloride 95.4 mmol/L (98-107); Glucose 134 mg/dL (75-100); Potassium 4.2 mmol/L (3.6-5.0); Sodium 137 mmol/L (137-145)
[2017-04-12 00:26] LABS: Anion Gap 17 mmol/L
[2017-04-12] MEDS ORDERED: PROVENTIL IH ONE (01:34)
[2017-04-12] MEDS ORDERED: DELTASONE PO ONE (01:34)
--- NOTE | 2017-04-12 01:35 | Emergency Department Report ---
ED General Adult HPI - General Chief complaint: Psych Stated complaint: MH Time Seen by Provider: 04/12/17 00:58 Source: patient Mode of arrival: Ambulatory Limitations: No Limitations - History of Present Illness Initial comments: Patient is a 57-year-old male with a past medical psych history who presents with complaint of I don't like my [facility]. Patient denies having any suicidal or homicidal ideation patient states that he hears no voices. Patient states that he is slightly short of breath. No chest pain he also only complains of "I refuse to go back to my [facility] because it so dirty there." Patient states that his shortness of breath is mild exertion makes it worse restricted better patient states that he has a history of asthma. Patient denies ingesting any substances. - Related Data Previous Rx's Medication Instructions Recorded Last Taken Type ALBUTEROL Inhaler [ProAir HFA 2 puff IH QID PRN #1 inhalation 04/12/17 Unknown Rx Inhaler] predniSONE [Deltasone] 20 mg PO BID #10 tab 04/12/17 Unknown Rx Allergies Allergy/AdvReac Type Severity Reaction Status Date / Time acetaminophen [From Tylenol] Allergy Hives Verified 03/28/17 10:09 chlorpromazine HCl Allergy Unknown Verified 03/28/17 10:09 [From Thorazine] diphenhydramine HCl Allergy Hives Verified 03/28/17 10:09 [From Benadryl] fluphenazine enanthate Allergy Unknown Verified 03/28/17 10:09 [From Prolixin] fluphenazine HCl Allergy Unknown Verified 03/28/17 10:09 [From Prolixin] haloperidol [From Haldol] Allergy Unknown Verified 03/28/17 10:09 haloperidol lactate Allergy Unknown Verified 03/28/17 10:09 [From Haldol] ED Review of Systems ROS: Stated complaint: MH Other details as noted in HPI Constitutional: denies: chills, fever Eyes: denies: eye pain, eye discharge, vision change ENT: denies: ear pain, throat pain Respiratory: SOB with exertion Cardiovascular: denies: chest pain, palpitations Endocrine: no symptoms reported Gastrointestinal: denies: abdominal pain, nausea, diarrhea Genitourinary: denies: urgency, dysuria Musculoskeletal: denies: back pain, joint swelling, arthralgia Skin: denies: rash, lesions Neurological: denies: headache, weakness, paresthesias Psychiatric: denies: anxiety, depression Hematological/Lymphatic: denies: easy bleeding, easy bruising ED Past Medical Hx - Past Medical History Hx Psychiatric Treatment: Yes (BIPOLAR/SCHIZO) Hx Asthma: Yes - Surgical History Additional Surgical History: "GROWTH FROM RECTUM REMOVED ..HEMORRHOIDECTOMY?" - Social History Smoking Status: Current Every Day Smoker Substance Use Type: None - Medications Home Medications: Home Medications Medication Instructions Recorded Confirmed Last Taken Type ALBUTEROL Inhaler [ProAir HFA 2 puff IH QID PRN #1 inhalation 04/12/17 Unknown Rx Inhaler] predniSONE [Deltasone] 20 mg PO BID #10 tab 04/12/17 Unknown Rx ED Physical Exam - General Limitations: No Limitations General appearance: alert, in no apparent distress - Head Head exam: Present: atraumatic, normocephalic - Eye Eye exam: Present: normal appearance - ENT ENT exam: Present: mucous membranes moist - Neck Neck exam: Present: normal inspection - Respiratory Respiratory exam: Present: wheezes - Cardiovascular Cardiovascular Exam: Present: regular rate, normal rhythm. Absent: systolic murmur, diastolic murmur, rubs, gallop - GI/Abdominal GI/Abdominal exam: Present: soft, normal bowel sounds - Rectal Rectal exam: Present: deferred - Extremities Exam Extremities exam: Present: normal inspection - Back Exam Back exam: Present: normal inspection - Neurological Exam Neurological exam: Present: alert, oriented X3 - Psychiatric Psychiatric exam: Present: flat affect. Absent: homicidal ideation, suicidal ideation - Skin Skin exam: Present: warm ED Course Vital Signs 04/11/17 04/12/17 18:40 01:45 Temperature 98.2 F 97.7 F Pulse Rate 90 76 Respiratory 16 18 Rate Blood Pressure 118/85 Blood Pressure 125/79 [Right] O2 Sat by Pulse 94 96 Oximetry - Reevaluation(s) Reevaluation #1: 04/12/17 02:00 Chest x-ray shows no acute pulmonary process. Patient states that he does not want a breathing treatment or prednisone or steroids. Discussed that patient may need can happen when he leaves. But we'll get a social work consult. Reevaluation #2: 04/12/17 02:07 This with patient that he will see aids social worker in the morning and he can stay in the ED for resting we'll discharge patient now. ED Medical Decision Making - Lab Data Result diagrams: 04/11/17 23:33 04/11/17 23:33 Laboratory Results - last 24 hr 04/11/17 04/11/17 04/11/17 18:53 18:53 23:33 WBC RBC Hgb Hct MCV MCH MCHC RDW Plt Count Lymph % (Auto) [place] % (Auto) Eos % (Auto) Baso % (Auto) Lymph # Lawrence # Eos # Baso # Seg Neutrophils % Seg Neutrophils # Sodium 137 Potassium 4.2 Chloride 95.4 L Carbon Dioxide 29 Anion Gap 17 BUN 16 Creatinine 0.7 L Estimated GFR > 60 BUN/Creatinine Ratio 22.85 Glucose 134 H Calcium 9.2 Urine Color Straw Urine Turbidity Clear Urine pH 7.0 Ur Specific [place] 1.003 Urine Protein <15 mg/dl Urine Glucose (UA) Neg Urine Ketones Neg Urine Blood Sm Urine Nitrite Neg Urine Bilirubin Neg Urine Urobilinogen < 2.0 Ur Leukocyte Esterase Neg Urine WBC (Auto) < 1.0 Urine RBC (Auto) 2.0 Urine Opiates Screen Presumptive negative Urine Methadone Screen Presumptive negative Ur Barbiturates Screen Presumptive negative Ur Phencyclidine Scrn Presumptive negative Ur Amphetamines Screen Presumptive negative U Benzodiazepines Scrn Presumptive negative Urine Cocaine Screen Presumptive negative U Marijuana (THC) Screen Presumptive negative Drugs of Abuse Note Disclamer Plasma/Serum Alcohol 04/11/17 04/11/17 23:33 23:33 WBC 8.4 RBC 4.81 Hgb 14.4 Hct 42.8 MCV 89 MCH 30 MCHC 34 RDW 13.5 Plt Count 179 Lymph % (Auto) 24.7 Lawrence % (Auto) 12.0 H Eos % (Auto) 2.4 Baso % (Auto) 0.7 Lymph # 2.1 Lawrence # 1.0 H Eos # 0.2 Baso # 0.1 Seg Neutrophils % 60.2 Seg Neutrophils # 5.0 Sodium Potassium Chloride Carbon Dioxide Anion Gap BUN Creatinine Estimated GFR BUN/Creatinine Ratio Glucose Calcium Urine Color Urine Turbidity Urine pH Ur Specific [place] Urine Protein Urine Glucose (UA) Urine Ketones Urine Blood Urine Nitrite Urine Bilirubin Urine Urobilinogen Ur Leukocyte Esterase Urine WBC (Auto) Urine RBC (Auto) Urine Opiates Screen Urine Methadone Screen Ur Barbiturates Screen Ur Phencyclidine Scrn Ur Amphetamines Screen U Benzodiazepines Scrn Urine Cocaine Screen U Marijuana (THC) Screen Drugs of Abuse Note Plasma/Serum Alcohol < 0.01 - Radiology Data Radiology results: image reviewed Chest x-ray shows no acute pulmonary disease. No pneumothorax. - Medical Decision Making Chief medical diagnosis: Mild asthma exacerbation Differential: Diagnosis: Pneumothorax, social issue, We'll get social work consult will give chest x-ray. Breathing treatment and will give steroid. Critical care attestation.: If time is entered above; I have spent that time in minutes in the direct care of this critically ill patient, excluding procedure time. ED Disposition Clinical Impression: Asthma exacerbation, Social problem Disposition: DC/TX-65 PSY HOSP/PSY UNIT Is pt being admited?: No Does the pt Need Aspirin: No Condition: Good Instructions: Asthma (ED) Prescriptions: ALBUTEROL Inhaler [ProAir HFA Inhaler] 2 puff IH QID PRN #1 inhalation PRN Reason: Shortness Of Breath predniSONE [Deltasone] 20 mg PO BID #10 tab Referrals: PRIMARY CARE, [Primary Care Provider] - 3-5 Days Time of Disposition: 02:04
[2017-04-12 01:53] VITALS: BP 125/79
--- NOTE | 2017-04-12 07:33 | XRay Report ---
CHEST 2 VIEWS INDICATION: Shortness of breath. COMPARISON: None similar. FINDINGS: PA and lateral chest radiographs demonstrate normal cardiomediastinal silhouette. Hyperexpanded lungs/COPD with left hemidiaphragmatic flattening/costophrenic angle blunting, possibly pleural thickening. Clear remainder lungs. No pleural effusions or CHF. Intact bones. CONCLUSION: COPD without acute chest process, as described. Thank you for the opportunity to participate in this patient's care.
== END 2017-04-12 03:15 ==
LOC: EEVIPCON 17:51 → ED 17:51
DX: J45.901 Unspecified asthma with (acute) exacerbation (principal); F29 Unspecified psychosis not due to a substance or known physiological condition; F20.9 Schizophrenia, unspecified; F31.9 Bipolar disorder, unspecified; F17.200 Nicotine dependence, unspecified, uncomplicated; Z88.1 Allergy status to other antibiotic agents; Z88.6 Allergy status to analgesic agent
CPT/HCPCS: 36415; 71020; 80048; 80307; 81001; 85025; 99284; G0480; J7512; 80320

== ENCOUNTER 2017-04-12 09:04 | Emergency (ER) | payer MEDICARE ==
[2017-04-12 09:15] VITALS: BP 137/103
--- NOTE | 2017-04-12 09:34 | Emergency Department Report ---
Entered by CHONG GARCÍA, acting as scribe for DELPHINE CARD PA. Chief Complaint: Psych Stated Complaint: EVALUATION Time Seen by Provider: 04/12/17 09:20 - HPI History of Present Illness: 57 y/o male with Hx of Bipolar, Schizophrenia and manic episodes, nontoxic, well nourished in appearance, no acute signs of distress presents needing evaluation of mental health. Pt states he is here to see social media community manager and for hygiene. Pt denies hallucinations, SI or drug use. - ROS Review of Systems: All systems are negative unless stated in the HPI above Pt denies HI, SI, hallucinations. - Exam Vital Signs: Vital Signs 04/12/17 09:11 Temperature 97.7 F Pulse Rate 87 Respiratory 18 Rate Blood Pressure 137/103 O2 Sat by Pulse 99 Oximetry Physical Exam: Lungs: normal breath sounds bilaterally, no respiratory distress Heart: Regular rate, rhythm, normal heart sounds s1/s2, no murmurs, rubs or gallops Constitutional: pt is dishoveled Psych: no SI/HI, no hallucinations MSE screening note: Focused history and physical exam performed. Due to findings the following was ordered:see mdm ED Medical Decision Making - Medical Decision Making crane manager and mental health consult MDM: Appropriate screening provided to pt by provider in MSE, appropriate protocol implemented. To be seen by provider in main ED . ED Disposition for [facility] Condition: Stable This documentation as recorded by the scribe,CHONG GARCÍA,accurately reflects the service I personally performed and the decisions made by me,DELPHINE CARD PA.
[2017-04-12 09:59] LABS: Urine Drugs of Abuse Note Disclamer
[2017-04-12 10:11] LABS: Bilirubin,Urine NEG (Negative); Blood,Urine SM (Negative); Ketones,Urine NEG (Negative); Leukocyte Esterase,Urine NEG (Negative); Mucus,Urine FEW /HPF; Nitrite,Urine NEG (Negative); Protein,Urine <15 mg/dL mg/dL (Negative); Urobilinogen,Urine < 2.0 mg/dL (<2.0); WBC,Urine < 1.0 /HPF (0.0-6.0)
[2017-04-12 10:17] LABS: Hematocrit 43.9 % (35.5-45.6); Hemoglobin 14.8 gm/dl (11.8-15.2); Mean Corpuscular HGB Conc 34 % (32-34); Mean Corpuscular Hemoglobin 30 pg (28-32); Mean Corpuscular Volume 90 fl (84-94); Platelet Count 190 K/mm3 (140-440); Red Blood Count 4.88 M/mm3 (3.65-5.03); Red Cell Distribution Width 13.6 % (13.2-15.2); White Blood Count 6.8 K/mm3 (4.5-11.0)
[2017-04-12 10:33] LABS: Anion Gap 16 mmol/L; BUN/Creatinine Ratio 18.57; Blood Urea Nitrogen 13 mg/dL (9-20); Calcium 9.1 mg/dL (8.4-10.2); Carbon Dioxide 31 mmol/L (22-30); Chloride 92.2 mmol/L (98-107); Glucose 127 mg/dL (75-100); Potassium 4.1 mmol/L (3.6-5.0); Sodium 135 mmol/L (137-145)
[2017-04-12 12:03] LABS: Basophils % (Manual) 0 % (0.0-1.8); Blastocytes % (Manual) 0 %; Eosinophils % (Manual) 0 % (0.0-4.3)
[2017-04-12 12:04] LABS: Diff Status Complete; Platelet Estimate Consistent w Auto; RBC Morphology Normal
== END 2017-04-12 10:00 | disposition left against medical advice (07) ==
LOC: ED 09:04
DX: Z53.21 Procedure and treatment not carried out due to patient leaving prior to being seen by health care provider (principal)
CPT/HCPCS: 36415; 80048; 80307; 81001; 85007; 85025; G0480; 80320

== ENCOUNTER 2017-06-15 12:41 | Emergency (ER) | payer MEDICARE | END 2017-06-15 12:45 | disposition left against medical advice (07) | LOC: ED 12:41 | DX: R06.00 Dyspnea, unspecified (principal); Z53.21 Procedure and treatment not carried out due to patient leaving prior to being seen by health care provider ==

== ENCOUNTER 2017-06-18 12:16 | Emergency (ER) | payer MEDICARE ==
[2017-06-18 12:38] VITALS: BP 143/97
[2017-06-18 14:03] LABS: Bilirubin,Urine NEG (Negative); Blood,Urine NEG (Negative); Ketones,Urine NEG (Negative); Leukocyte Esterase,Urine NEG (Negative); Nitrite,Urine NEG (Negative); Protein,Urine <15 mg/dL mg/dL (Negative); Urobilinogen,Urine < 2.0 mg/dL (<2.0); WBC,Urine < 1.0 /HPF (0.0-6.0)
== END 2017-06-18 12:58 | disposition left against medical advice (07) ==
LOC: ED 12:16
DX: Z53.21 Procedure and treatment not carried out due to patient leaving prior to being seen by health care provider (principal)
CPT/HCPCS: 81001

== ENCOUNTER 2017-06-19 23:20 | Emergency (ER) | payer MEDICARE | END 2017-06-19 23:25 | disposition left against medical advice (07) | LOC: ED 23:20 | DX: R07.9 Chest pain, unspecified (principal); Z53.21 Procedure and treatment not carried out due to patient leaving prior to being seen by health care provider ==